=== PATIENT | female | born 1945 | race Caucasian/White ===

== ENCOUNTER 2021-03-30 04:54 | Emergency (ER) | payer MEDICARE, OTHER ==
[2021-03-30 05:08] VITALS: BP 175/69
--- NOTE | 2021-03-30 05:17 | ED Physician Documentation ---
History of Present Illness - Stated complaint Stated Complaint: VERTIGO/F - Chief complaint Chief Complaint: UTI - History obtained from History obtained from: Patient - History of Present Illness Timing: How many days ago (1-2) Pain level now: 1 (mild suprapubic pressure) Improved by: lying still (vertigo) Worsened by: movement of head, particularly turning to either side (vertigo); urinating (dysuria) - Additonal information Additional information: patient has two c/o: 1) 1-2 days of suprapubic pressure, urinary frequency with small amount of UO, burning dysuria 2) sudden onset of room-spinning sensation when she stood up from sitting position, worse with turning head either direction, relieved with rest and lying still. She has had vertigo in the past and this feels similar to previous episodes. Review of Systems Constitutional: denies: Fever, Chills, Sweats Eyes: reports: Reviewed and negative Ears: reports: Reviewed and negative : reports: Dysuria, Frequency Neurologic: reports: Other (dizziness/vertigo). denies: Generalized weakness, Focal weakness, Numbness, Headache PD PAST MEDICAL HISTORY - Past Medical History Past Medical History: Yes Cardiovascular: High cholesterol Endocrine/Autoimmune: Type 2 diabetes - Present Medications Home Medications: Ambulatory Orders Medication Instructions Recorded Confirmed Amitriptyline HCl 50 mg PO DAILY 03/30/21 03/30/21 Atorvastatin [Lipitor] 10 mg PO DAILY 03/30/21 03/30/21 Cyclobenzaprine [Flexeril] 10 mg PO DAILY 03/30/21 03/30/21 Gabapentin [Gralise] 300 mg PO DAILY 03/30/21 03/30/21 Meclizine [Antivert] 25 mg PO Q6H PRN #14 tablet 03/30/21 Meloxicam [Mobic] 15 mg PO DAILY 03/30/21 03/30/21 Nitrofurantoin [Macrobid] 100 mg PO BID #14 03/30/21 Omeprazole 40 mg PO DAILY 03/30/21 03/30/21 Sitagliptin Phos/Metformin HCl 1 each PO BID 03/30/21 03/30/21 [Janumet Xr 50-1,000 mg Tablet] - Allergies Allergies/Adverse Reactions: Allergies Allergy/AdvReac Type Severity Reaction Status Date / Time No Known Drug Allergies Allergy Verified 03/30/21 05:08 - Living Situation Living Situation: reports: With spouse/s.o. Living Arrangement: reports: At home PD ED PE NORMAL - Vitals Vital signs reviewed: Yes - General General: Alert and oriented X 3, No acute distress, Well developed/nourished - HEENT HEENT: PERRL, EOMI - Neck Neck: Supple, no meningeal sign - Cardiac Cardiac: RRR, No murmur - Back Back: No CVA TTP - Neuro Neuro: Alert and oriented X 3, hand cooper helper 2-12 intact, No motor deficit, No sensory deficit, Normal speech Eye Opening: Spontaneous Motor: Obeys Commands Verbal: Oriented GCS Score: 15 Results - Vitals Vitals: Vital Signs - 24 hr 03/30/21 05:05 Temperature 36.8 C Heart Rate 87 Respiratory 18 Rate Blood Pressure 175/69 H O2 Saturation 87 L Oxygen O2 Source Room air - Labs Labs: Laboratory Tests 03/30/21 05:19 Urine Color YELLOW Urine Clarity SL. CLOUDY Urine pH 7.0 Ur Specific [place] 1.015 Urine Protein 100 H Urine Glucose (UA) NEGATIVE Urine Ketones NEGATIVE Urine Occult Blood MODERATE H Urine Nitrite POSITIVE H Urine Bilirubin NEGATIVE Urine Urobilinogen 1 (NORMAL) Ur Leukocyte Esterase MODERATE H Urine RBC 11-25 H Urine WBC >25 H Ur Squamous Epith Cells RARE Squamous Urine Bacteria Few Ur Microscopic Review INDICATED Urine Culture Comments INDICATED PD MEDICAL DECISION MAKING - ED course Complexity details: reviewed results, re-evaluated patient, considered differential, d/w patient ED course: UA is c/w UTI as is HPI, will treat with macrobid and pyridium for symptoms. Dizziness description suggests vertigo, given meclizine and rx for same Departure - Departure Disposition: 01 Home, Self Care Clinical Impression: Urinary tract infection, Vertigo Condition: Good Instructions: ED UTI Cystitis Female, ED Vertigo Unspecified Prescriptions: Meclizine [Antivert] 25 mg PO Q6H PRN #14 tablet PRN Reason: Vertigo Nitrofurantoin [Macrobid] 100 mg PO BID #14 Discharge Date/Time: 03/30/21 06:22
[2021-03-30] MEDS ORDERED: MECLIZINE 12.5 MG TABLET PO STA (05:32)
[2021-03-30 05:44] LABS: BILIRUBIN,URINE NEGATIVE (NEGATIVE); GLUCOSE, URINE (UA) NEGATIVE (NEGATIVE); KETONES,URINE (UA) NEGATIVE (NEGATIVE); LEUKOCYTE ESTERASE, URINE MODERATE (NEGATIVE); NITRITE,URINE POSITIVE (NEGATIVE); OCCULT BLOOD,URINE MODERATE (NEGATIVE); PROTEIN,URINE 100 mg/dL (NEGATIVE); UROBILINOGEN,URINE 1 (NORMAL) E.U./dL (NORMAL)
[2021-03-30 05:47] LABS: CLARITY,URINE SL. CLOUDY (CLEAR)
[2021-03-30 05:52] LABS: SQUAMOUS EPITHELIAL CELL,UR RARE Squamous (<= Few); WBC,URINE >25 /HPF (0-5)
[2021-03-30 05:53] LABS: BACTERIA,URINE Few /HPF (None Seen)
[2021-03-30] MEDS ORDERED: NITROFURANTOIN MACRO 100 MG CAPSULE PO STA (06:04)
[2021-03-30] MEDS ORDERED: PHENAZOPYRIDINE 100 MG TABLET PO STA (06:20)
[2021-03-30] MEDS ORDERED: PHENAZOPYRIDINE 100 MG TABLET PO ONE (06:22)
--- NOTE | 2021-04-02 14:14 | ED Physician Documentation ---
ED Addendum - Addendum Addendum: 04/02/21 14:13 Culture follow-up, antibiotic changed to Keflex 500 mg p.o. 4 times daily x5 days, #20. Given to culture RN
--- NOTE | 2021-04-02 14:20 | ED Physician Documentation ---
ED Addendum - Addendum Addendum: 04/02/21 14:20 Also requested something for yeast, Diflucan 150 mg p.o. x1 was also called in with the antibiotic.
== END 2021-03-30 06:22 | disposition home or self-care (01) ==
LOC: ED 04:54
DX: N39.0 Urinary tract infection, site not specified (principal); R42 Dizziness and giddiness; E11.9 Type 2 diabetes mellitus without complications; Z79.84 Long term (current) use of oral hypoglycemic drugs
CPT/HCPCS: 81001; 87077; 87086; 87181; 99283; 99284; A9270; 81003

== ENCOUNTER 2021-06-25 11:42 | Outpatient (CLI) | payer MEDICARE, OTHER ==
--- NOTE | 2021-06-25 10:20 | XRAY Report ---
PROCEDURE: Knee 3 View RT INDICATIONS: RIGHT KNEE PAIN TECHNIQUE: 3 views of the right knee(s) were acquired. COMPARISON: None. FINDINGS: BONES/JOINT: No acute, displaced fracture or dislocation. Small minimal medial joint space loss. Tric ompartmental and tibial spine osteophytosis. Suprapatellar joint effusion. SOFT TISSUES: No significant abnormality. IMPRESSION: 1.No acute osseous abnormality. Reviewed by: Aleksandr Vazquez MD on 06/25/2021 10:19 AM PDT Approved by: Aleksandr Vazquez MD on 06/25/2021 10:19 AM PDT Station ID: [id number]
== END 2021-06-25 11:43 ==
LOC: DI.N 11:42
PROVIDERS: ATTEND Family Medicine
DX: M25.561 Pain in right knee (principal)